=== PATIENT | female | born 1980 | race American Indian/Alaskan Native ===

== ENCOUNTER 2018-08-19 07:24 | Inpatient (IN) | payer SELFPAY ==
[2018-08-19] MEDS ORDERED: ASPIRIN PO ONE (08:06)
[2018-08-19] MEDS ORDERED: NITRO-BID 2% TP ONE (08:25)
[2018-08-19 08:31] LABS: Basophils # (Auto) 0.1 K/mm3 (0.0-0.1); Basophils % (Auto) 0.7 % (0.0-1.8); Eosinophils # (Auto) 0.5 K/mm3 (0.0-0.4); Eosinophils % (Auto) 6.6 % (0.0-4.3); Hematocrit 36.7 % (30.3-42.9); Lymphocytes # (Auto) 2.4 K/mm3 (1.2-5.4); Lymphocytes % (Auto) 30.7 % (13.4-35.0); Mean Corpuscular HGB Conc 33 % (30-34); Mean Corpuscular Volume 88 fl (79-97); Monocytes # (Auto) 0.6 K/mm3 (0.0-0.8); Monocytes % (Auto) 8.1 % (0.0-7.3); Platelet Count 169 K/mm3 (140-440); Red Blood Count 4.17 M/mm3 (3.65-5.03)
--- NOTE | 2018-08-19 08:31 | Emergency Department Report ---
HPI - General Chief Complaint: Chest Pain Time Seen by Provider: 08/19/18 08:19 - [facility] HPI: Room 19 The patient is a 38-year-old female presenting with a chief complaint of chest pain. The patient states for the past hour she's had intermittent substernal chest tightness associated with dizziness and occasional pleurisy. Patient denies shortness of breath, nausea/vomiting or diaphoresis. The patient gives her pain is score of 10/10. Patient states she's never had a stress test or cardiac catheterization. Location: Chest Duration: Intermittent times one hour Quality: Tightness Severity: 10/10 Modifying factors: [see above] Context: [see above] Mode of transportation: [not driving] ED Past Medical Hx - Past Medical History Previous Medical History?: No - Surgical History Past Surgical History?: No - Family History Family history: no significant - Social History Smoking Status: Never Smoker Substance Use Type: None (denies illicit drug use), Alcohol (occasional) - Medications Home Medications: Home Medications Medication Instructions Recorded Confirmed Last Taken Type No Known Home Medications [No 08/19/18 08/19/18 Unknown History Reported Home Medications] ED Review of Systems ROS: Stated complaint: CHEST PAIN Other details as noted in HPI Constitutional: denies: diaphoresis Eyes: denies: eye pain ENT: denies: throat pain Respiratory: other (pleurisy). denies: shortness of breath Cardiovascular: chest pain Endocrine: no symptoms reported Gastrointestinal: denies: nausea, vomiting Genitourinary: denies: dysuria Musculoskeletal: denies: back pain Neurological: denies: headache Physical Exam - Physical Exam Vital Signs: Vital Signs 08/19/18 08/19/18 08/19/18 07:58 08:01 08:02 Temperature 97.7 F 97.7 F Pulse Rate 84 84 Respiratory 14 14 14 Rate Blood Pressure 139/96 Blood Pressure 139/96 [Left] O2 Sat by Pulse 99 99 99 Oximetry Physical Exam: GENERAL: The patient is well-developed well-nourished female lying on stretcher appearing to be in mild discomfort. [] HEENT: Normocephalic. Atraumatic. Extraocular motions are intact. Patient has moist mucous membranes. NECK: Supple. Trachea midline CHEST/LUNGS: Clear to auscultation. There is no respiratory distress noted. HEART/CARDIOVASCULAR: Regular. There is no tachycardia. There is no gallop rub or murmur. ABDOMEN: Abdomen is soft, nontender. Patient has normal bowel sounds. There is no abdominal distention. SKIN: There is no rash. There is no edema. There is no diaphoresis. NEURO: The patient is awake, alert, and oriented. The patient is cooperative. The patient has normal speech MUSCULOSKELETAL: There is no evidence of acute injury. ED Course Vital Signs 08/19/18 08/19/18 08/19/18 07:58 08:01 08:02 Temperature 97.7 F 97.7 F Pulse Rate 84 84 Respiratory 14 14 14 Rate Blood Pressure 139/96 Blood Pressure 139/96 [Left] O2 Sat by Pulse 99 99 99 Oximetry ED Medical Decision Making - Lab Data Result diagrams: 08/19/18 08:15 08/19/18 08:15 Laboratory Tests 08/19/18 08/19/18 08/19/18 08:15 08:15 08:43 WBC 7.9 RBC 4.17 Hgb 12.0 Hct 36.7 MCV 88 MCH 29 MCHC 33 RDW 13.0 L Plt Count 169 Lymph % (Auto) 30.7 [place] % (Auto) 8.1 H Eos % (Auto) 6.6 H Baso % (Auto) 0.7 Lymph # 2.4 [place] # 0.6 Eos # 0.5 H Baso # 0.1 Seg Neutrophils % 53.9 Seg Neutrophils # 4.2 D-Dimer 183.81 Sodium 139 Potassium 3.9 Chloride 102.9 Carbon Dioxide 26 Anion Gap 14 BUN 21 H Creatinine 0.8 Estimated GFR > 60 BUN/Creatinine Ratio 26 Glucose 96 Calcium 9.0 Troponin T < 0.010 HCG, Qual 08/19/18 08:43 WBC RBC Hgb Hct MCV MCH MCHC RDW Plt Count Lymph % (Auto) [place] % (Auto) Eos % (Auto) Baso % (Auto) Lymph # [place] # Eos # Baso # Seg Neutrophils % Seg Neutrophils # D-Dimer Sodium Potassium Chloride Carbon Dioxide Anion Gap BUN Creatinine Estimated GFR BUN/Creatinine Ratio Glucose Calcium Troponin T HCG, Qual Negative - EKG Data -: EKG Interpreted by Me EKG shows normal: sinus rhythm Rate: normal - EKG Data When compared to previous EKG there are: previous EKG unavailable Interpretation: nonspecific ST-T wave nura (T-wave inversion in lead 3, V2) - Radiology Data Radiology results: report reviewed (chest x-ray), image reviewed (chest x-ray) interpreted by me: Chest x-ray-no focal infiltrates, no pneumothorax [facility] [address] [place] [address] XRay Report Signed Patient: MINERVA DAVENPORT MR#: [id number] : 1980 Acct:[id number] Age/Sex: 38 / F ADM Date: 08/19/18 Loc: ED Attending Dr: Ordering Physician: JEWELS MONROY MD Date of Service: 08/19/18 Procedure(s): XR chest 1V ap Accession Number(s): [id number] cc: JEWELS MONROY MD Fluoro Time In Minutes: PROCEDURE: XR CHEST 1V AP TECHNIQUE: AP portable chest radiograph HISTORY: Chest Pain COMPARISONS: None FINDINGS: No mediastinal shift. Cardiac silhouette is not enlarged. No pneumothorax, effusion, or focal pulmonary opacity identified. No acute skeletal findings. IMPRESSION: No acute pulmonary finding identified. This document is electronically signed by Jason Pichardo MD., August 19 2018 09:07:01 AM ET Transcribed By: MB Dictated By: JASON PICHARDO MD Electronically Authenticated By: JASON PICHARDO MD Signed Date/Time: 08/19/18908 DD/ 5 TD/TT: 08/19/18835 - Differential Diagnosis ACS, pericarditis, GERD, PE Critical care attestation.: If time is entered above; I have spent that time in minutes in the direct care of this critically ill patient, excluding procedure time. ED Disposition Clinical Impression: Chest pain Disposition: DC-09 OP ADMIT IP TO THIS HOSP Is pt being admited?: Yes Does the pt Need Aspirin: Yes Condition: Fair Instructions: Chest Pain (ED) Time of Disposition: 09:15 (hospitalist paged)
[2018-08-19 08:46] LABS: BUN/Creatinine Ratio 26; Blood Urea Nitrogen 21 mg/dL (7-17); Hemolysis Index 13
--- NOTE | 2018-08-19 09:09 | XRay Report ---
PROCEDURE: XR CHEST 1V AP TECHNIQUE: AP portable chest radiograph HISTORY: Chest Pain COMPARISONS: None FINDINGS: No mediastinal shift. Cardiac silhouette is not enlarged. No pneumothorax, effusion, or focal pulmona ry opacity identified. No acute skeletal findings. IMPRESSION: No acute pulmonary finding identified. This document is electronically signed by Jason Sorto MD., August 19 2018 09:07:01 AM ET
[2018-08-19] MEDS ORDERED: TYLENOL PO PRN (09:18)
[2018-08-19] MEDS ORDERED: MORPHINE IV PRN (09:18)
[2018-08-19] MEDS ORDERED: SODIUM CHLORIDE FLUSH SYRINGE 10 ML IV PRN (09:18)
[2018-08-19] MEDS ORDERED: PERCOCET 5/325 PO PRN (09:18)
[2018-08-19] MEDS ORDERED: ZOFRAN IV PRN (09:18)
[2018-08-19] MEDS ORDERED: SUBLIMAZE IV ONE (09:20)
[2018-08-19] MEDS ORDERED: ZOFRAN IV ONE (09:20)
--- NOTE | 2018-08-19 09:27 | History and Physical Report ---
History of Present Illness Chief complaint: chest pain History of present illness: 38-year-old woman with no significant past medical history. She presents with chest pain, and dizziness. The patient admits that the pain is pleuritic at times. The pain is substernal, dull nonradiating, associated with dizziness. She denies shortness of breath, denies pedal edema, denies decreased exercise tolerance. No relieving or exacerbating factors. Past History Past Medical History: No medical history Past Surgical History: No surgical history Social history: no significant social history Family history: hypertension Medications and Allergies Allergies Allergy/AdvReac Type Severity Reaction Status Date / Time No Known Allergies Allergy Verified 08/19/18 08:21 Home Medications Medication Instructions Recorded Confirmed Last Taken Type Ibuprofen [Motrin] 600 mg PO Q8H PRN #90 tablet 08/19/18 Unknown Rx Pantoprazole [Protonix] 40 mg PO QDAY #30 tablet 08/19/18 Unknown Rx Active Meds: Active Medications Acetaminophen (Tylenol) 650 mg PO Q4H PRN PRN Reason: Pain MILD(1-3)/Fever >100.5/GARCES Morphine Sulfate (Morphine) 2 mg IV Q4H PRN PRN Reason: Pain, Moderate (4-6) Stop: 08/20/18 09:17 Ondansetron HCl (Zofran) 4 mg IV Q8H PRN PRN Reason: Nausea And Vomiting Oxycodone/Acetaminophen (Percocet 5/325) 1 tab PO Q6H PRN PRN Reason: Pain, Moderate (4-6) Sodium Chloride (Sodium Chloride Flush Syringe 10 Ml) 10 ml IV BID PEREZ Sodium Chloride (Sodium Chloride Flush Syringe 10 Ml) 10 ml IV PRN PRN PRN Reason: LINE FLUSH Review of Systems All systems: negative Constitutional: no weight loss Ears, nose, mouth and throat: no ear pain Breasts: deferred Cardiovascular: chest pain, no orthopnea, no palpitations, no rapid/irregular heart beat Respiratory: no cough Gastrointestinal: no abdominal pain Genitourinary Female: no hematuria Rectal: no pain Musculoskeletal: no neck stiffness Integumentary: no rash Neurological: no head injury Psychiatric: no anxiety Endocrine: no cold intolerance Hematologic/Lymphatic: no easy bruising Exam - Constitutional Vitals: Temp Pulse Resp BP Pulse Ox 97.7 F 90 19 131/82 100 08/19/18 08:01 08/19/18 08:37 08/19/18 08:30 08/19/18 08:37 08/19/18 08:30 General appearance: Present: no acute distress, well-nourished - EENT Eyes: Present: PERRL ENT: hearing intact, clear oral mucosa - Neck Neck: Present: supple, normal ROM - Respiratory Respiratory effort: normal Respiratory: bilateral: CTA - Cardiovascular Heart Sounds: Present: S1 & S2. Absent: rub, click - Extremities Extremities: pulses symmetrical, No edema Peripheral Pulses: within normal limits - Abdominal General gastrointestinal: Present: soft, non-tender, non-distended, normal bowel sounds Female genitourinary: Present: normal - Integumentary Integumentary: Present: clear, warm, dry - Musculoskeletal Musculoskeletal: gait normal, strength equal bilaterally - Psychiatric Psychiatric: appropriate mood/affect, intact judgment & insight - Neurologic Neurologic: CNII-XII intact, moves all extremities Results - Labs CBC & Chem 7: 08/19/18 08:15 08/19/18 08:15 Labs: Laboratory Last Values WBC 7.9 K/mm3 (4.5-11.0) 08/19/18 08:15 RBC 4.17 M/mm3 (3.65-5.03) 08/19/18 08:15 Hgb 12.0 gm/dl (10.1-14.3) 08/19/18 08:15 Hct 36.7 % (30.3-42.9) 08/19/18 08:15 MCV 88 fl (79-97) 08/19/18 08:15 MCH 29 pg (28-32) 08/19/18 08:15 MCHC 33 % (30-34) 08/19/18 08:15 RDW 13.0 % (13.2-15.2) L 08/19/18 08:15 Plt Count 169 K/mm3 (140-440) 08/19/18 08:15 Lymph % (Auto) 30.7 % (13.4-35.0) 08/19/18 08:15 [place] % (Auto) 8.1 % (0.0-7.3) H 08/19/18 08:15 Eos % (Auto) 6.6 % (0.0-4.3) H 08/19/18 08:15 Baso % (Auto) 0.7 % (0.0-1.8) 08/19/18 08:15 Lymph # 2.4 K/mm3 (1.2-5.4) 08/19/18 08:15 [place] # 0.6 K/mm3 (0.0-0.8) 08/19/18 08:15 Eos # 0.5 K/mm3 (0.0-0.4) H 08/19/18 08:15 Baso # 0.1 K/mm3 (0.0-0.1) 08/19/18 08:15 Seg Neutrophils % 53.9 % (40.0-70.0) 08/19/18 08:15 Seg Neutrophils # 4.2 K/mm3 (1.8-7.7) 08/19/18 08:15 D-Dimer 183.81 ng/mlDDU (0-234) 08/19/18 08:43 Sodium 139 mmol/L (137-145) 08/19/18 08:15 Potassium 3.9 mmol/L (3.6-5.0) 08/19/18 08:15 Chloride 102.9 mmol/L (98-107) 08/19/18 08:15 Carbon Dioxide 26 mmol/L (22-30) 08/19/18 08:15 Anion Gap 14 mmol/L 08/19/18 08:15 BUN 21 mg/dL (7-17) H 08/19/18 08:15 Creatinine 0.8 mg/dL (0.7-1.2) 08/19/18 08:15 Estimated GFR > 60 ml/min 08/19/18 08:15 BUN/Creatinine Ratio 26 % 08/19/18 08:15 Glucose 96 mg/dL (65-100) 08/19/18 08:15 Calcium 9.0 mg/dL (8.4-10.2) 08/19/18 08:15 Troponin T < 0.010 ng/mL (0.00-0.029) 08/19/18 08:15 HCG, Qual Negative (Negative) 08/19/18 08:43 - Imaging and Cardiology EKG: image reviewed (no acute findings) Chest x-ray: image reviewed (no pna) Assessment and Plan Assessment and plan: 38-year-old woman with no significant past medical history who presents with chest pain Diagnoses Chest pain Plan EKG and troponins are negative, chest x-ray also negative. D-dimer negative She received treadmill stress test which was negative, she was seen by cardiology who agreed with the plan The patient is being discharged with a PPI and NSAID. She is to follow up her PCP in 1-2 weeks.
[2018-08-19] MEDS ORDERED: SODIUM CHLORIDE FLUSH SYRINGE 10 ML IV SCH (10:00)
--- NOTE | 2018-08-19 13:16 | Consultation ---
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 Denies any seizure or shortness of breath stress test showed a fair exercise capacity 7 minutes 30 seconds on Sigifredo protocol no EKG changes blood pressure was controlled with activity Past History Past Medical History: No medical history Past Surgical History: No surgical history Social history: no significant social history Family history: hypertension Medications and Allergies Allergies Allergy/AdvReac Type Severity Reaction Status Date / Time No Known Allergies Allergy Verified 08/19/18 08:21 Home Medications Medication Instructions Recorded Confirmed Last Taken Type Ibuprofen [Motrin] 600 mg PO Q8H PRN #90 tablet 08/19/18 Unknown Rx Pantoprazole [Protonix] 40 mg PO QDAY #30 tablet 08/19/18 Unknown Rx Active Meds: Active Medications Acetaminophen (Tylenol) 650 mg PO Q4H PRN PRN Reason: Pain MILD(1-3)/Fever >100.5/GARCES Morphine Sulfate (Morphine) 2 mg IV Q4H PRN PRN Reason: Pain, Moderate (4-6) Stop: 08/20/18 09:17 Ondansetron HCl (Zofran) 4 mg IV Q8H PRN PRN Reason: Nausea And Vomiting Oxycodone/Acetaminophen (Percocet 5/325) 1 tab PO Q6H PRN PRN Reason: Pain, Moderate (4-6) Sodium Chloride (Sodium Chloride Flush Syringe 10 Ml) 10 ml IV BID PEREZ Last Admin: 08/19/18 10:18 Dose: 10 ml Documented by: Sodium Chloride (Sodium Chloride Flush Syringe 10 Ml) 10 ml IV PRN PRN PRN Reason: LINE FLUSH Review of Systems All systems: negative (as per the HPI) Physical Examination Vital Signs Pulse Resp 96 H 17 08/19/18 07:32 08/19/18 07:32 General appearance: no acute distress, well-nourished HEENT: Positive: PERRL, Mucus Membranes Moist Neck: Positive: neck supple, trachea midline Cardiac: Positive: Reg Rate and Rhythm, S1/S2. Negative: Audible Murmur Lungs: Positive: clear to auscultation, Normal Breath Sounds Neuro: Positive: Grossly Intact Abdomen: Positive: Soft, Active Bowel Sounds. Negative: Tender, Distended Female genitourinary: deferred Skin: Positive: Clear Incision: Cardiac Cath Site Musculoskeletal: No Pain, Normal Range of Motion Extremities: Present: normal. Absent: edema Results 08/19/18 08:15 08/19/18 08:15 CBC 08/19/18 Range/Units 08:15 WBC 7.9 (4.5-11.0) K/mm3 RBC 4.17 (3.65-5.03) M/mm3 Hgb 12.0 (10.1-14.3) gm/dl Hct 36.7 (30.3-42.9) % Plt Count 169 (140-440) K/mm3 Lymph # 2.4 (1.2-5.4) K/mm3 Jerome # 0.6 (0.0-0.8) K/mm3 Eos # 0.5 H (0.0-0.4) K/mm3 Baso # 0.1 (0.0-0.1) K/mm3 Comprehensive Metabolic Panel 08/19/18 Range/Units 08:15 Sodium 139 (137-145) mmol/L Potassium 3.9 (3.6-5.0) mmol/L Chloride 102.9 (98-107) mmol/L Carbon Dioxide 26 (22-30) mmol/L BUN 21 H (7-17) mg/dL Creatinine 0.8 (0.7-1.2) mg/dL Glucose 96 (65-100) mg/dL Calcium 9.0 (8.4-10.2) mg/dL - Imaging and Cardiology Stress echo: other (negative treadmill stress test) EKG interpretations - Telemetry EKG Rhythm: Sinus Rhythm (normal sinus rhythm nonspecific ST-T) Assessment and Plan Chest pain secondary to pleurisy vs gi Obesity Recommend: Start patient on Motrin 800 mg twice a day along with a proton pump inhibitor patient may be discharged cardiovascular point of view of negative cardiac enzymes and negative treadmill stress test followed primary care
[2018-08-19 13:41] VITALS: BP 118/81
--- NOTE | 2018-08-19 15:02 | Treadmill Report ---
NUCLEAR PERFUSION STUDY REASON FOR STUDY: Chest pain. READING PHYSICIAN: Rohit Weber MD. REASON FOR TEST: The patient exercised on Sigifredo protocol for 7 minutes 30 seconds. Resting heart rate is 87, resting blood pressure 110/72. Resting EKG, sinus rhythm, nonspecific ST-Ts. The patient had no EKG changes suggestive of ischemia during the treadmill or recovery. Peak heart rate is 162, which is 87% of maximum heart stop secondary to shortness of breath and back issues. Peak blood pressure 155/82. The patient had no EKG changes suggestive of ischemia. SUMMARY: 1. Negative treadmill EKG. 2. Fair exercise capacity 7 minutes 30 seconds Sigifredo protocol. 3. No exaggerated BP response to exercise. 4. There are no EKG changes or arrhythmias associated with ischemia during the stress recovery phase. Stopped secondary to shortness of breath and back issues. No chest pain. JOB# [id number] JILLIANM/NTS
== END 2018-08-19 15:30 | disposition home or self-care (01) | DRG 195 ==
LOC: ED 07:24 → 3A 09:18
PROVIDERS: ADMIT Internal Medicine; ATTEND Internal Medicine
DX: R09.1 Pleurisy (principal); E66.9 Obesity, unspecified; Z68.34 Body mass index [BMI] 34.0-34.9, adult; Z72.89 Other problems related to lifestyle; Z82.49 Family history of ischemic heart disease and other diseases of the circulatory system
CPT/HCPCS: 36415; 71045; 80048; 84484; 84703; 85025; 85379; 93005; 93010; 93017; G0378; J2405; J3010